=== PATIENT | male | born 1985 | race Caucasian/White ===

== ENCOUNTER 2020-11-27 13:38 | Emergency (ER) | payer BC, SELFPAY ==
[2020-11-27 13:43] VITALS: BP 124/74; PULSE 86; RESP 16; TEMP 36.8; O2SAT 96; BMI 27.1
[2020-11-27 13:45] VITALS: BP 124/74; PULSE 86; RESP 16; TEMP 36.8; O2SAT 96; BMI 27.1
--- NOTE | 2020-11-27 14:04 | HMH.EDUTC ---
[facility] [place] Impression: Dental abscess Disposition: Home, Self-Care Condition on Discharge: Good Instructions: Tooth Abscess, Ibuprofen, Amoxicillin and Clavulanic Acid Additional Instructions: Take medication as prescribed Use dental balls as advised in the [facility] Call Dentist tomorrow and make appointment as soon as possible Return if needed Straight to ER if any life threatening symptoms Prescriptions: Amoxicillin/Potassium Clav [Augmentin 875-125 Tablet] 1 tab PO Q12H 10 Days #20 tab Transmission Status: Received by [id number] Ibuprofen [Ibuprofen 800mg Tablet] 800 mg PO TIDP PRN #15 tab PRN Reason: Moderate Pain Transmission Status: Received by [id number] Referrals: PCPGreer [Primary Care Provider] - As needed Jaspreet Abraham [Referring] - As needed Time of Disposition: 14:12 Medical Decision Making - Henri Inquiry Pt receiving controlled substance: No Henri was queried for this patient: No Vital Signs: 11/27/20 13:43 11/27/20 13:45 Temperature 98.2 F 98.2 F Temperature Source Oral Oral Pulse Rate [Right Radial] 86 86 Respiratory Rate 16 16 Blood Pressure [Right Arm] 124/74 124/74 Blood Pressure Mean [Right Arm] 90 90 Blood Pressure Source [Right Arm] Automatic Cuff Blood Pressure Position [Right Arm] Sitting 02 Sat by Pulse Oximetry 96 96 Oxygen Delivery Method Room Air Room Air Orders (Tests/Meds): ED MEDICATIONS Discontinued Medications Generic Name Dose Route Start Last Admin Trade Name Freq PRN Reason Stop Dose Admin Benzocaine/Butamben/Tetracaine HCl 1 gm 11/27/20 14:05 11/27/20 14:08 Tetracaine/Benzocaine/Butamben 56 Gm [place] TP 11/27/20 14:06 1 gm ONCE ONE Administration Lidocaine HCl 15 ml 11/27/20 14:04 11/27/20 14:09 Lidocaine 2% Viscous Kat 15ml Udc PO 11/27/20 14:05 Not Given ONCE ONE Lidocaine HCl 15 ml 11/27/20 14:05 11/27/20 14:09 Lidocaine 2% Viscous Kat 15ml Udc PO 11/27/20 14:06 15 ml ONCE ONE Administration [facility] [place] - General Stated complaint: possible abcess tooth Time Seen by Provider: 11/27/20 14:04 Mode of Arrival: Ambulatory Source of Information: Patient Limitations: No Limitations Description of Symptoms (Recalled from Triage Doc. by RN): PATIENT C/O SWELLING AND TOOTH PAIN HEENT Symptoms (Recalled from RN notes): No Resp Symptoms (Recalled from RN notes): No Skin Symptoms (Recalled from RN notes): No MS Symptoms (Recalled from RN notes): No Functional Status (Recalled from RN notes): WNL - History of Present Illness Provider Complaint: Patient states that he recently broke a tooth on his bottom left jaw area States that for the last couple of days he has had pain on and off and last night it got worse and he woke up this morning with his lower jaw area swollen and having pain States that he thinks he has an abscessed tooth - Related Data Previous Rx's Medication Instructions Recorded Amoxicillin/Potassium Clav 1 tab PO Q12H 10 Days #20 tab 11/27/20 [Augmentin 875-125 Tablet] Ibuprofen [Ibuprofen 800mg 800 mg PO TIDP PRN #15 tab 11/27/20 Tablet] Allergies Allergy/AdvReac Type Severity Reaction Status Date / Time No Known Allergies Allergy Verified 11/27/20 14:03 - Worker's Comp Is this a Worker's Comp case?: No [facility] History - Hepatitis A Screen Drug use history?: No High risk sexual behaviors?: No History of sexually transmitted infection?: No Currently employed?: No Childcare worker?: No Do you have indoor plumbing?: Yes Do you have electricity?: Yes Attestation statement:: This patient has been screened for Hepatitis A risk factors. I have reviewed the patient's past medical history: Yes - Social History Alcohol Intake: never Occupational Status: other ROS Obtained: Yes All systems reviewed & no additional complaints, Yes Systems reviewed as appropriate & no additional complaints - Constitutional Constitutional: Reports system
[2020-11-27 14:18] VITALS: BP 124/74; PULSE 86; RESP 16; TEMP 36.8; O2SAT 96
== END 2020-11-27 14:20 | disposition home or self-care (01) ==
LOC: ER 13:48 → UTC 13:48
PROVIDERS: Emergency Provider Nurse Practitioner
DX: K04.7 Periapical abscess without sinus (principal); K02.9 Dental caries, unspecified
CPT/HCPCS: 99202; G0463

== ENCOUNTER 2020-12-13 22:38 | Emergency (ER) | payer BC, SELFPAY ==
[2020-12-13 22:46] VITALS: BP 149/75; PULSE 82; RESP 16; TEMP 37; O2SAT 98; BMI 25.7
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
[2020-12-13 23:20] VITALS: BP 138/74; PULSE 78; RESP 16; TEMP 37; O2SAT 98
== END 2020-12-13 23:23 | disposition home or self-care (01) ==
PROVIDERS: Emergency Provider Emergency Medicine
DX: S20.212A Contusion of left front wall of thorax, initial encounter (principal); V86.59XA Driver of other special all-terrain or other off-road motor vehicle injured in nontraffic accident, initial encounter; F17.210 Nicotine dependence, cigarettes, uncomplicated
CPT/HCPCS: 71101; 99282

== ENCOUNTER 2021-10-25 12:25 | Emergency (ER) | payer MEDICAID, SELFPAY ==
[2021-10-25 13:56] VITALS: BP 0/0; PULSE 0; RESP 0; TEMP -17.7; TEMP 0
== END 2021-10-25 13:56 | disposition left against medical advice (07) ==
LOC: UTC 12:28
PROVIDERS: Emergency Provider Nurse Practitioner Family
DX: Z53.21 Procedure and treatment not carried out due to patient leaving prior to being seen by health care provider (principal)